=== PATIENT | female | born 1995 | race Caucasian/White ===

== ENCOUNTER 2022-09-18 10:18 | Inpatient (IN) | payer BC, OTHER ==
[~2022-09-18] VITALS: Ht 157.5 cm; Wt 75.3 kg
[2022-09-18 11:00] VITALS: BP 120/75; PULSE 101; RESP 18; TEMP 98; O2SAT 98
[2022-09-18] MEDS ORDERED: MORPHINE SULFATE 5 MG/ML VIAL IVP PRN (11:00)
[2022-09-18] MEDS ORDERED: METHYLERGONOVINE 0.2 MG/ML AMP IM PRN (11:30)
[2022-09-18] MEDS ORDERED: ONDANSETRON 4 MG/2 ML VIAL IVP PRN (11:30)
[2022-09-18] MEDS ORDERED: CARBOPROST 250 MCG/ML AMP IM PRN (11:30)
[2022-09-18 12:04] LABS: BASOPHILS % (AUTO) 0.3 % (0.0-2.0); EOSINOPHILS % (AUTO) 0.5 % (0.0-4.0); HEMATOCRIT 30.5 % (36-48); HEMOGLOBIN 10.2 g/dL (12.0-16.0); LYMPHOCYTES # (AUTO) 1.2 K/uL (2.5-16.5); LYMPHOCYTES % (AUTO) 14.5 % (20.5-51.1); MEAN CORPUSCULAR HEMOGLOBIN 30 pg (27-31); MEAN CORPUSCULAR HGB CONC 33 g/dL (33-37); MEAN CORPUSCULAR VOLUME 89.9 fL (80-94); MONOCYTES # (AUTO) 0.5 K/uL (0.8-1.0); MONOCYTES % (AUTO) 6.5 % (1.7-9.3); NEUTROPHILS # (AUTO) 6.4 K/uL (1.8-7.7); NEUTROPHILS % (AUTO) 78.2 % (42.2-75.2); PLATELET COUNT (AUTO) 156 K/uL (140-450); RED BLOOD CELL COUNT(AUTO) 3.39 MIL/uL (4.20-5.40); RED CELL DISTRIBUTION WIDTH 15.3 % (11.6-13.7); WHITE BLOOD COUNT (AUTO) 8.2 K/uL (4.8-10.8)
[2022-09-18] MEDS ORDERED: MISOPROSTOL 25 MCG TAB ONE ×2 (12:04→18:16)
[2022-09-18] MEDS: LACTATED RINGERS 1,000 ML IV SCH ×2 (12:16→21:25)
[2022-09-18 12:17] LABS: APPEARANCE,URINE CLEAR (CLEAR); BILIRUBIN,URINE NEGATIVE (NEGATIVE); BLOOD, URINE NEGATIVE (NEGATIVE); COLOR,URINE YELLOW (YELLOW); LEUKOCYTE ESTERASE ,URINE 3+ (NEGATIVE); NITRITE, URINE NEGATIVE (NEGATIVE); UGLUCOSE NEGATIVE (NEGATIVE)
[2022-09-18 12:24] LABS: ALBUMIN 2.6 g/dL (3.4-5.0); ANION GAP 14.8 (8-16); CREATININE 0.5 mg/dL (0.6-1.3); POTASSIUM 3.8 mmol/L (3.5-5.1); TOTAL BILIRUBIN 0.3 mg/dL (0.0-1.0)
[2022-09-18 12:31] LABS: RBC,URINE 0-5 /HPF (0-5)
[2022-09-18 12:32] LABS: TRICHOMONAS,URINE None Seen /HPF (None Seen); YEAST,URINE None Seen /HPF (None Seen)
[2022-09-18] MEDS ORDERED: MISOPROSTOL 200 MCG TAB VG SCH (18:00)
[2022-09-18] MEDS: MISOPROSTOL 200 MCG TAB VG SCH (18:19)
[2022-09-18] MEDS ORDERED: OXYTOCIN 20 UNITS in LACTATED RINGERS 1,000 ML IV SCH (19:15)
[2022-09-19] MEDS: LACTATED RINGERS 1,000 ML IV SCH ×3 (05:59→17:15)
[2022-09-19] MEDS ORDERED: OXYTOCIN 20 UNITS/LR PREMIX 1,000 ML IV ONE (07:24)
[2022-09-19 09:10] LABS: PROTHROMBIN TIME 9.2 secs (10.8-13.4)
--- NOTE | 2022-09-19 09:16 | NUR ---
PATIENT HAS BEEN SCREENED AND CATEGORIZED LOW NUTRITION RISK. PATIENT WILL BE SEEN WITHIN 7 DAYS OF ADMISSION. 09/18/22-09/25/[address]
[2022-09-19] MEDS ORDERED: fentaNYL citrate 0.05 MG/ML VIAL ONE (11:14)
[2022-09-19] MEDS ORDERED: ROPIVACAINE 0.2%/NS PREMIX 200 ML EPI ONE (11:15)
[2022-09-19] MEDS ORDERED: LIDOCAINE 1% 500 MG/50 ML VIAL ONE (20:49)
[2022-09-19] MEDS ORDERED: LIDOCAINE 1% 500 MG/ 50 ML VIAL INJ SCH (21:05)
[2022-09-19] MEDS ORDERED: OXYTOCIN 10 UNITS/ML VIAL IM PRN (23:50)
[2022-09-19] MEDS ORDERED: IBUPROFEN 800 MG TAB PO PRN (23:50)
[2022-09-19] MEDS ORDERED: MEASLES, MUMPS, AND RUBELLA 1 VIAL SQVAC ONE (23:50)
[2022-09-19] MEDS ORDERED: METHYLERGONOVINE 0.2 MG/ML AMP IM PRN (23:50)
[2022-09-19] MEDS ORDERED: HYDROcodone/APAP 5/325 MG 1 TAB TAB PO PRN (23:50)
[2022-09-19] MEDS ORDERED: oxyCODONE/APAP 5/325 MG 1 TAB TAB PO PRN (23:50)
[2022-09-19] MEDS ORDERED: METHYLERGONOVINE 0.2 MG TAB PO PRN (23:50)
[2022-09-19] MEDS ORDERED: BENZOCAINE/MENTHOL 20%-0.5% 60 GM CAN TP PRN (23:50)
[2022-09-19] MEDS ORDERED: TEMAZEPAM 15 MG CAP PO PRN (23:50)
[2022-09-20] MEDS ORDERED: IBUPROFEN 800 MG TAB PO PRN (02:35)
[2022-09-20] MEDS ORDERED: oxyCODONE/APAP 5/325 MG 1 TAB TAB PO PRN ×2 (02:35)
[2022-09-20 06:08] LABS: HEMATOCRIT 24.6 % (36-48); HEMOGLOBIN 8.5 g/dL (12.0-16.0)
[2022-09-20] MEDS ORDERED: DOCUSATE SOD/SENNA 50/8.6 MG 1 TAB PO SCH ×2 (21:00)
== END 2022-09-21 11:20 | disposition home or self-care (01) | DRG 807 ==
LOC: MFCC 10:18 → MLD 19:26 → MFCC 09-19 23:48
PROVIDERS: ADMIT Obstetrics & Gynecology; ATTEND Obstetrics & Gynecology
PROC: 10E0XZZ Delivery of Products of Conception, External Approach (ICD-10-PCS; principal; 2022-09-19)
PROC: 3E0R3BZ Introduction of Anesthetic Agent into Spinal Canal, Percutaneous Approach (ICD-10-PCS; 2022-09-19)
PROC: 00HU33Z Insertion of Infusion Device into Spinal Canal, Percutaneous Approach (ICD-10-PCS; 2022-09-19)
DX: O70.1 Second degree perineal laceration during delivery (principal); Z37.0 Single live birth; Z3A.37 37 weeks gestation of pregnancy; Z20.822 Contact with and (suspected) exposure to COVID-19
CPT/HCPCS: 36415; 51702; 59070; 59200; 59409; 76815; 80053; 81001; 85018; 85025; 85610; 85730; 86592; 86886; 86900; 86901; 87086; J2001; J2590; J2795; J3010; J7120; Q0092